=== PATIENT | male | born 1945 | race Caucasian/White ===

== ENCOUNTER 2017-04-21 14:01 | Observation (INO) | payer OTHER ==
--- NOTE | 2017-04-21 14:41 | EDPHY ---
H & P Time Seen by Provider: 04/21/17 14:22 HPI/ROS: CHIEF COMPLAINT: Could not read HISTORY OF PRESENT ILLNESS: 71-year-old man has a history of cardiac stenting for 90% circumflex lesion. He also has hyperlipidemia and hypertension. Today he was at home reading about a upcoming trip to [facility] and suddenly could not read or understand any of the brochure. This happened at 1:15 p.m. and lasted about 15 min. He told his that he was not feeling bad and was trying to tell her that he thought he might be having a stroke but he could not remember or say the word "stroke. " Currently is asymptomatic. REVIEW OF SYSTEMS: Eye: no change in vision ENT: no sore throat Cardiac: no chest pain or syncope Pulmonary: no cough or SOB Abdomen: no vomiting, diarrhea, abdominal pain Musculoskeletal: no back pain Skin: no rash Neuro: no headache Constitutional: no fever : no urinary symptoms A comprehensive 10 point review of systems is otherwise negative aside from elements mentioned in the history of present illness. PAST MEDICAL HISTORY: As in HPI includes coronary disease Social history: General Appearance: Alert and conversant, cooperative. Eyes: No scleral icterus. Extraocular motion intact and pupils round reactive. ENT, Mouth: Normal mucous membranes. Respiratory: Normal respiratory effort, breath sounds equal, lungs are clear to auscultation. Cardiovascular: Regular rate and rhythm. Gastrointestinal: Abdomen is soft and non tender. Neurological: Alert, face symmetric, normal motor and sensory in extremities. Acxldp-lv-olph intact bilaterally and no pronator drift. Speech fluent. Skin: Warm and dry, no rashes. Musculoskeletal: No peripheral edema. Psychiatric: Not agitated. Emergency Department course/MDM: Patient presents with likely TIA. He is a patient of Ariel Khoury at [facility]. Plan for head CT, carotid evaluation, echocardiogram, EKG, 24 hr monitoring. The patient says he can read normally now. I handed him back his [employer] brochure which he brought to the ED, and he can read it fluently now but just tells me that he thinks it is poorly written. [id number]: discussed with [facility] about hospitalization, [facility] requests that I admit [facility] not transfer per [facility]/ECM office. Admission hospitalist service for TIA workup. Smoking Status: Former smoker Constitutional: Initial Vital Signs Temperature (C) 37.0 C 04/21/17 14:05 Heart Rate 81 04/21/17 14:05 Respiratory Rate 16 04/21/17 14:05 Blood Pressure 146/101 H 04/21/17 14:05 O2 Sat (%) 96 04/21/17 14:05 O2 Delivery Mode Room Air Allergies/Adverse Reactions: No Known Allergies Allergy (Unverified 04/21/17 14:04) Home Medications: Medication Instructions Recorded Aspirin [Aspirin 81mg (*)] 81 mg PO DAILY 04/21/17 Calcium Carbonate [Oyster Shell 500 mg PO DAILY 04/21/17 Calcium 500 mg (*)] Cholecalciferol Vit D3 [Vitamin D3 1,000 units PO DAILY 04/21/17 (*)] Herbals/Supplements -Info Only 1 ea PO DAILY 04/21/17 Metoprolol Succinate Xr [Toprol Xl 100 mg PO DAILY 04/21/17 100 mg (*)] Multivitamins [Multivitamin (*)] 1 each PO DAILY 04/21/17 Simvastatin [Zocor] 40 mg PO DAILY 04/21/17 Medical Decision Making - Diagnostics EKG Interpretation: 12-lead EKG interpreted by me; official reading is in trace master. My interpretation is sinus rhythm with PVC rate 74. Imaging Results: Imaging Impressions Chest X-Ray 04/21/17 14:41 Impression: Hyperexpanded lungs suggesting COPD with no definite acute findings. Head CT 04/21/17 14:41 Impression: 1. No acute intracranial findings. If symptoms persist and clinical suspicion warrants, consider MRI. 2. Diffuse cerebral atrophy with periventricular and subcortical low attenuation consistent with chronic microvascular ischemic gliosis. 3. Mucous retention cyst/polyps in the maxillary sinuses. Findings discussed with Dr. Jseus Shaikh on 04/21/2017 at 15:17. Imaging: I viewed and interpreted images myself Differential Diagnosis: The differential considered including but not limited to TIA, intracranial mass , partial seizure ischemic stroke, primary ophthalmological problem. Consult/Admit Bed Type: [place] [id number] - Data Points Laboratory Results: Laboratory Results 04/21/17 14:58 04/21/17 14:58 04/21/17 04/21/17 04/21/17 14:58 14:58 14:57 WBC 5.90 10^3/uL 10^3/uL (3.80-9.50) RBC 4.92 10^6/uL 10^6/uL (4.40-6.38) Hgb 16.0 g/dL g/dL (13.7-17.5) Hct 46.5 % % (40.0-51.0) MCV 94.5 fL fL (81.5-99.8) MCH 32.5 pg pg (27.9-34.1) MCHC 34.4 g/dL g/dL (32.4-36.7) RDW 12.1 % % (11.5-15.2) Plt Count 155 10^3/uL 10^3/uL (150-400) MPV 11.8 fL H fL (8.7-11.7) Neut % (Auto) 56.4 % % (39.3-74.2) Lymph % (Auto) 26.9 % % (15.0-45.0) Pope % (Auto) 9.3 % % (4.5-13.0) Eos % (Auto) 6.6 % % (0.6-7.6) Baso % (Auto) 0.5 % % (0.3-1.7) Nucleat RBC Rel Count 0.0 % % (0.0-0.2) Absolute Neuts (auto) 3.32 10^3/uL 10^3/uL (1.70-6.50) Absolute Lymphs (auto) 1.59 10^3/uL 10^3/uL (1.00-3.00) Absolute Monos (auto) 0.55 10^3/uL 10^3/uL (0.30-0.80) Absolute Eos (auto) 0.39 10^3/uL 10^3/uL (0.03-0.40) Absolute Basos (auto) 0.03 10^3/uL 10^3/uL (0.02-0.10) Absolute Nucleated RBC 0.00 10^3/uL 10^3/uL (0-0.01) Immature Gran % 0.3 % % (0.0-1.1) Immature Gran # 0.02 10^3/uL 10^3/uL (0.00-0.10) Sodium 142 mEq/L mEq/L (135-145) Potassium 4.2 mEq/L mEq/L (3.5-5.2) Chloride 105 mEq/L mEq/L (97-110) Carbon Dioxide 22 mEq/l mEq/l (22-31) Anion Gap 15 mEq/L mEq/L (8-16) BUN 17 mg/dL mg/dL (7-23) Creatinine 0.8 mg/dL mg/dL (0.7-1.3) Estimated GFR > 60 Glucose 97 mg/dL mg/dL (70-100) Calcium 10.0 mg/dL mg/dL (8.5-10.4) Troponin I < 0.012 ng/mL ng/mL < 0.012 ng/mL ng/mL (0.000-0.034) (0.000-0.034) Medications Given: Aspirin (Aspirin) 81 mg PO DAILY TE Stop: 10/18/17 15:14 Last Admin: 04/21/17 16:01 Dose: Not Given Discontinued Medications Sodium Chloride (Ns) 1,000 mls @ 3,000 mls/hr IV ONCE ONE Stop: 04/21/17 15:23 Last Admin: 04/21/17 16:01 Dose: 1,000 mls Departure - Departure Disposition: [facility] Inpatient Acute Clinical Impression: Transient cerebral ischemia Qualifiers: Transient cerebral ischemia type: unspecified Qualified Code(s): G45.9 - Transient cerebral ischemic attack, unspecified Condition: Good
--- NOTE | 2017-04-21 14:58 | CPEKG ---
Heart Rate: 74 RR Interval: 811 P-R Interval: 172 QRSD Interval: 94 QT Interval: 428 QTC Interval: 475 P [place]: 74 QRS [place]: 48 T Wave [place]: 27 EKG Severity - OTHERWISE NORMAL ECG - EKG Impression: SINUS RHYTHM EKG Impression: VENTRICULAR PREMATURE COMPLEX Electronically Signed By: Jesus Shaikh 21-Apr-2017 15:01:12
[2017-04-21] MEDS ORDERED: ONDANSETRON 4 MG/2 ML VIAL IVP PRN (15:04)
[2017-04-21] MEDS ORDERED: NS 1,000 ML IV ONE (15:04)
[2017-04-21] MEDS ORDERED: ACETAMINOPHEN 325 MG TAB PO PRN (15:04)
[2017-04-21] MEDS ORDERED: ONDANSETRON DISINTEGRATING 4 MG TAB PO PRN (15:04)
[2017-04-21 15:50] LABS: PLATELET COUNT 155 10^3/uL (150-400)
[2017-04-21] MEDS: ASPIRIN 81 MG CHEWABLE TAB PO SCH (16:01)
[2017-04-21] MEDS ORDERED: IOPAMIDOL (ISOVUE 370) 100 ML BTL IV ONE (16:11)
--- NOTE | 2017-04-21 17:44 | GHP ---
[f rep st] HISTORY AND PHYSICAL DATE OF ADMISSION: 04/21/2017 CHIEF COMPLAINT: Word-finding difficulties. HISTORY OF PRESENT ILLNESS: A 71-year-old male with a history of SD and stent placed to his circumfl ex coronary artery approximately 18 years ago, who reports no recurring symptoms of chest discomfort or arm pain since his intervention. He is a healthy, highly functioning male with no limitations sec ondary to dyspnea, chest pain, palpitations, or weakness. The patient was working on a house that he was building today and reading some high-level [employer] and reading when all of a sudden h e was unable to read or understand the words that were in front of him. He could make out the letter s very clearly but no longer was able to interpret the meaning of the letter or the words that were i n front of him. Symptoms began at approximately 1:15 in the afternoon and lasted for 15 minutes, the n spontaneously resolved. Patient denies any associated weakness, tingling, numbness. Patient was a ble to ambulate around his home without any gait instability or difficulty. After resolution of the word-finding difficulty, patient has not had recurrence of his symptoms. In the emergency department he denies chest pain, denies shortness of breath, denies dizziness, vision changes, dysphagia, chest pain, palpitations, abdominal pain, nausea, vomiting, diarrhea, dysuria, hematuria, lower extremity edema. PAST MEDICAL HISTORY: 1. Coronary artery disease status post stenting to the circumflex 18 years ago. 2. Hypertension. SOCIAL HISTORY: Patient drinks wine in the evenings. Is a previous smoker but has not smoked since the . Denies illicit drugs and very rarely uses marijuana. FAMILY HISTORY: Positive for coronary artery disease in his older brother. ADVANCED DIRECTIVES: Patient is full cor, full tube. His would be his medical decision maker. REVIEW OF SYSTEMS: A 10-point review of systems is negative with the exception of that reported in t he HPI. PHYSICAL EXAMINATION: VITAL SIGNS: Blood pressure 146/101, heart rate 81, respiratory rate 16, 96% on room air, 37.0. GENERAL: This is a very healthy-appearing middle-aged male in no acute distress. HEENT: Exam is notable for moist mucous membranes. Eye exam is negative for any icterus. CARDIAC : Patient is regular rate and rhythm. No murmur is appreciated. PULMONARY: Clear to auscultation bilaterally. GASTROINTESTINAL: Positive bowel sounds. ABDOMEN: Soft and nontender in all 4 quadra nts. MUSCULOSKELETAL: Negative for any lower extremity edema. SKIN: Negative for any rashes. SACHIN ROLOGIC: The patient is alert and oriented x3. His speech is fluid without difficulty finding or ma jessica words. The patient has 5/5 strength bilaterally of the upper and lower extremities. Cranial ne rves 2-12 are grossly intact. PSYCHIATRIC: He is pleasant and cooperative on interview and examinat ion. DATA: Noncontrast CT of the head, which I personally reviewed and interpreted shows no acute intracr anial findings. LABORATORY: White count 5.9, hematocrit 46.5. Creatinine 0.8. Troponin less than 0.012. EKG which I personally reviewed and interpreted shows sinus rhythm, normal access, normal intervals with no ac kena ST-T changes. ASSESSMENT AND PLAN: This is a 71-year-old male presenting with word-finding difficulty. 1. Acute transient ischemic attack. The patient's symptoms lasted for 15 minutes, resolved spontane ously. Initial imaging of the brain is benign. The patient received 81 mg of aspirin. Will be admi tted on telemetry. We will obtain a CTA of the head and neck, a transthoracic echocardiogram, and an MRI brain. We will continue his home dosing of aspirin and statin, check a hemoglobin A1c and lipid s in the morning. Neurology will be consulted and can assist in the completion of his diagnostic sintia luation in the morning item. 2. Coronary artery disease. The patient does not have any chest pain symptoms. Vital signs are sta ble. EKG is unconcerning. Will not cycle an additional troponin at this time item. 3. Hypertension. We will continue his home medications and follow his blood pressures overnight. 4. Prophylaxis with Lovenox. 5. Diet: Cardiac. DISPOSITION: I expect in less than 2 midnights if the patient's diagnostic workup is benign, he shou ld be a candidate for disposition in the morning. I have discussed the case with the emergency room physician. Patient will be triaged to the medical-surgical floor for care. /[id number]/MODL
[2017-04-22 04:41] VITALS: O2SAT 95
[2017-04-22] MEDS: ASPIRIN 81 MG CHEWABLE TAB PO SCH (08:42)
[2017-04-22] MEDS ORDERED: METOPROLOL SUCCINATE XR 50 MG TAB PO SCH (09:00)
[2017-04-22] MEDS ORDERED: CHOLECALCIFEROL VIT D3 1,000 UNITS TAB PO SCH (09:00)
[2017-04-22] MEDS ORDERED: ATORVASTATIN CALCIUM 20 MG TAB PO SCH (09:00)
[2017-04-22] MEDS ORDERED: CALCIUM CARBONATE 500 MG TAB PO SCH (09:00)
[2017-04-22] MEDS ORDERED: MULTIVITAMINS 1 EACH TAB PO SCH (09:00)
[2017-04-22] MEDS ORDERED: ENOXAPARIN 40 MG/0.4 ML SYR SC SCH (09:00)
[2017-04-22] MEDS ORDERED: Herbals/Supplements -Info Only PO SCH (09:00)
--- NOTE | 2017-04-22 09:08 | ASMTCASEMG ---
Living Arrangements What is your living Answers: With Spouse arrangement? Who do you live with? Type Of Residence What kind of residence do Answers: House you live in? Discharge Plan Comments Coordination Status Comments Notes: Pt is a 71 y/o man admitted for acute transient ischemic attack. Pts symptoms resolved after 15 mins. Neurology and speech has been consulted. Pt will most likely d/c independent when medically stable. CM available for changes. Plan: Independent Date Signed: 04/22/2017 09:07 AM Electronically Signed By:ISABELLA Chen
--- NOTE | 2017-04-22 09:32 | NEUROPROG ---
Assessment: [id number] - Neurology Consult: - CC: Dr. Davidson consulted neurology for possible TIA. Results placed in EMR for her review. - HPI: The patient reported on 04/21/17 he had a brief episode of loss of ability to read for 15 minutes. He denied any other neurologic problems to include no weakness, sensory changes, or tingling. He presented to [facility] ER and was admitted for stroke evaluation. Head CT and brain MRI were unremarkable. CTA head/neck showed a 70% left vert stenosis and a 50-60% right ICA stenosis. Pt was on aspirin and statin at admission. I initially saw the patient on . His neurologic exam was normal. I was concerned his right carotid stenosis was symptomatic so I asked General surgery to take a look at him. TTE and 24 hour telemetry was not yet completed as well. He denied complaints. - PMHx: [place] w/stent 1999, HTN - Meds: simvastatin 40 mg qd, aspirin 81 mg qd, metoprolol - SHx: prior tobacco user FHx: coronary artery disease - ROS: Pt denied acute fever, total vision loss, active severe chest pain, respiratory failure, total body severe rash, total bowel/bladder incontinence, psychosis, active seizures, or active bleeding - O: VS reviewed General: Alert Eyes: Fundoscopic exam not able to visualize optic disks CV: Heart RRR, no murmur, no carotid bruit Lungs: Clear to auscultation bilaterally, no rhonchi or rales Neuro: - Mental: . Oriented x person/place/date . concentration appears normal . speech fluency/comprehension normal . memory appears normal . fund of knowledge appear intact - Cranial Nerves: . II: PERRL, VFFTC . III/IV/: EOMI, no nystagmus, normal smooth pursuits, no Ptosis . V: facial sensation intact to LT . VII: face symmetric to eye closure and smile . VIII: hearing intact to conversation . IX/X: uvula raises symmetrically . XI: SCM 5/5 B/L strength . XII: tongue protrudes midline w/nl strength - Motor: . Tone: normal tone in all 4 extremity . Strength: no pronator drift, strength 5/5 throughout (B/L delt, bic, tri, hand golf cart attendant, hf/he, df/pf) - Reflexes: B/L bic/BR/patella 2/4 - Sensory: all 4 extremity intact to light touch - Coord: wakqda-cf-aqcr wnl, BILL wnl, ncby-wb-mseq wnl - Gait: deferred - NIH SS: 0 - Labs: 04/21/17- CBC wnl, Chem wnl LDL 56L, H1AC pending - Rads: 04/21/17- Head CT: no acute changes 04/21/17- CTA head/neck: 70% left vert stenosis, 50-60% right ICA stenosis 04/21/17- Brain MRI w/o con: no acute findings, atrophy/CMVD (I personally visualized the images on 04/22/17) - Assessment: 1. TIA in setting of right carotid stenosis: Pt with 15 minutes of problems reading on 04/21/17 in the setting of 50-60% right ICA stenosis is concerning for a symptomatic right carotid stenosis. Normal neurologic exam 04/22/17. Brain MRI 04/21/17 unremarkable. CTA head/neck showed 70% left vert stenosis and 50-60% right ICA stenosis. 04/21/17 LDL 56L. Given TIA and left vert stenosis I would recommend lifetime statin/antiplatelet therapy (as patient is currently undergoing). - 2. History of coronary artery disease - Plan: - Recommend obtaining surgery consult by Dr. Shore for suspected symptomatic right carotid stenosis (I called Dr. Shore and placed this consult) - TTE - 24 hour telemetry - Work closely with primary care provider to ensure blood pressure < 140/90, H1AC < 7.0, and LDL < 70 - Stop aspirin 81 mg qd and begin plavix 75 mg qd and continue lifelong for stroke prevention (TIA occurred on aspirin, aspirin failure) - Continue statin - F/U in neurology clinic or with [place] [facility] 1-4 weeks after hospital discharge Objective: Vital Signs Temp Pulse Resp BP Pulse Ox 36.7 C 62 22 H 115/65 95 04/22/17 08:47 04/22/17 08:47 04/22/17 08:47 04/22/17 08:47 04/22/17 08:47 04/21/17 04/22/17 04/23/17 05:59 05:59 05:59 Intake Total 1000 Balance 1000 Allergies/Adverse Reactions: No Known Allergies Allergy (Unverified 04/21/17 14:04)
--- NOTE | 2017-04-22 14:20 | ECHO ---
[email or web address] [address] [address] Main: [phone] Fax: Transthoracic Echocardiogram Name: BEATA DICKEY MR#: [id number] Study Date: 04/22/2017 Study Time: 08:10 AM Date of : 1945 Age: 71 year(s) Height: 172.7 cm (68 in.) Weight: 81.65 kg (180 lb.) BSA: 1.95 m2 Gender: Male Examination: Echo Indication: TIA, Hx stent years ago Image Quality: Contrast: Requested by: Anabel Davidson BP: 122 mmHg/74 mmHg Heart Rate: Rhythm: Indication: TIA, Hx stent years ago Procedure Staff Metallography Teacher: Ellen Vargas [facility] Reading Physician: Kali Huffman Requesting Provider: Conclusions: Mildly dilated left ventricle. No LV hypertrophy. Normal global systolic LV function. EF is 59 %. Mid and basal inferior wall hypokinesis . The left atrium is normal in size. An agitated saline study was performed and was negative for intracardiac shunting. The right atrium is normal in size. Trivial tricuspid valve regurgitation. No pericardial effusion. Measurements: Chambers Valvular Assessment AV/MV Valvular Assessment TV/PV Normal Normal Normal Name Value Range Name Value Range Name Value Range Ao Rosy (MM): 3.7 cm (2.2 cm-3.7 AV meanP mmHg ( - ) cm) MV E Vmax: 0.82 m/s ( - ) IVSd (2D): 0.7 cm (0.6 cm-1.1 MV A Vmax: 0.80 m/s ( - ) cm) MV E/A: 1.02 ( - ) LVDd (2D): 6.1 cm (4.2 cm-5.9 cm) LVDs (2D): 4.5 cm (2.1 cm-4 cm) LVPWd (2D): 0.8 cm (0.6 cm-1 cm) LVEF (MOD4): 59 % (>=55 %) Continued Measurements: Chambers Valvular Assessment AV/MV Patient: BEATA DICKEY Study Date: 04/22/2017 Page 1 of 2 08:10 AM Name Value Name Value LADs: 4.1 cm MV E/E' Septal: 15.30 LADs Lon.5 cm MV E/E' Lateral: 8.80 LA Area: 21.0 cm2 Findings: Left Ventricle: Mildly dilated left ventricle. No LV hypertrophy. Normal global systolic LV function. EF is 59 %. Mid and basal inferior wall hypokinesis . Right Ventricle: Normal size right ventricle. Left Atrium: The left atrium is normal in size. An agitated saline study was performed and was negative for intracardiac shunting. Right Atrium: The right atrium is normal in size. Mitral Valve: The mitral valve is normal in appearance and function. Mild mitral valve regurgitation is present. Aortic Valve: The aortic valve is normal in appearance and function. Tricuspid Valve: The tricuspid valve is normal in appearance and function. Trivial tricuspid valve regurgitation. Pulmonic Valve: The pulmonic valve is normal in appearance and function. Aorta: The aorta is normal. Pericardium: No pericardial effusion. (No Signature Object) Patient: BEATA DICKEY Study Date: 04/22/2017 Page 2 of 2 08:10 AM [id number]
--- NOTE | 2017-04-22 14:22 | GCON ---
[f rep st] CONSULTATION DATE OF CONSULTATION: 04/22/2017 HISTORY OF PRESENT ILLNESS: Patient is a 71-year-old male who is [facility] with an atypical T[facility] could not effectively read for several minutes. He had no other motor problems or other symp toms, and no visual disturbances, although he has a history of a visual problem 3-4 years ago. He wa s evaluated for TIA. His brain MRI is negative for stroke, but he does have a 60% calcified stenosis of his right internal carotid artery, as well as a 70% stenosis of the origin of his left vertebral. PAST MEDICAL HISTORY: Includes coronary stent with coronary artery disease, and hypertension. FAMILY HISTORY: Noncontributory. REVIEW OF SYSTEMS: Negative on a 10-point Review of Systems. Specifically, he does not smoke or hav e any current cardiopulmonary symptoms. PRESENT MEDICATIONS: Aspirin and Zocor, high blood pressure medicine, include MultiVites and metopro lol, vitamin D. ALLERGIES: None. PHYSICAL EXAMINATION: GENERAL: Reveals an alert 71-year-old male, in no acute distress. VITAL SIGN S: Afebrile. HEENT/NECK: Reveals no definite bruits. No thyromegaly. No oral lesions. No adenop athy, and no icterus. CHEST: Clear. CARDIAC: Reveals a regular rhythm. ABDOMEN: Soft. EXTREMIT IES: Benign with full pulses. NEURO: Physiologic and symmetric with motor and sensory skills. His cranial nerves were intact. IMPRESSION: Atypical transient ischemic attack. RECOMMENDATIONS: Would be to consider right carotid endarterectomy as a logical cause of his TIA. Alicia suárez should be safe enough to consult with his primary doctor at [place], if he does not want to proceed with surgery at this time. I would continue his aspirin therapy, and consider changing to Lipitor as a statin drug. Again, it is a difficult call because of his somewhat atypical symptomatology, but I think it is suggestive of TIA that would warrant a right carotid endarterectomy. Copy requested to: Dilip Enriquez /[id number]/MODL
[2017-04-22 16:02] VITALS: BP 117/75; PULSE 55; RESP 22; TEMP 98
[2017-04-22] MEDS ORDERED: CLOPIDOGREL BISULFATE 75 MG TAB PO SCH (16:15)
--- NOTE | 2017-04-22 18:53 | PDDCSUM ---
Discharge Summary Discharge Summary: DISCHARGE SUMMARY FOLLOW-UP ITEMS: Outpatient stress test Vascular surgery evaluation DATE OF ADMISSION: 04/21/2017 DATE OF DISCHARGE: 04/22/2017 DISCHARGE DIAGNOSES: 1. Acute TIA 2. 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 CONSULTATIONS: Neurology, vascular surgery PROCEDURES / IMAGING: CT angiogram demonstrating right-sided internal carotid artery 50-60% stenosis, left side vertebral artery 70% stenosis, no intracranial stenosis, echocardiogram demonstrating focal wall motion abnormalities, normal ejection fraction, no severe valvulopathy MRI demonstrating no CVA CHIEF COMPLAINT: Acute visual disturbance SUBJECTIVE: Patient is feeling well at time discharge, he has not had recurrence symptoms PHYSICAL EXAM ON DISCHARGE: Systolic blood pressure is 120-140, heart rate 60, afebrile overnight, satting on room air, patient has facial symmetry, alert awake oriented x3, motor strength 5/5 bilateral upper extremities LABS ON DISCHARGE: Hemoglobin A1c 5.4%, LDL 56 HOSPITAL COURSE BY PROBLEM: The patient presented with acute TIA characterized by acute visual disturbance, lasting approximately 15 min, resolving spontaneously, most likely corresponding to stenosis in his right internal carotid artery, noted on CT angiogram. MRI demonstrated no overt CVA. Echocardiogram demonstrated no ASD. The patient was seen consultation by Neurology who recommended upgrading his aspirin to Plavix, upgrading his simvastatin to atorvastatin. He was seen by vascular surgery who recommended non emergent vascular surgery consideration, and the patient would like to consider this through [facility]. Echocardiogram did demonstrate some focal hypokinesis, the patient reports cardiac stenting approximately 17 years ago, unknown baseline echocardiogram. I believe the patient most likely warrants a nuclear medicine stress test prior to engaging in vascular surgery. I communicated this to the patient his , and they will follow up with her primary care provider to address these issues. I counseled the patient and his regarding the need for immediate medical attention if he experiences any recurrence of symptoms, as well as the bleeding risks on Plavix. DISCHARGE MEDICATIONS: Please see official discharge medication reconciliation sheet in chart , discontinue aspirin, initiate Plavix 75 mg daily, discontinue simvastatin, initiate atorvastatin 20 mg daily DISCHARGE INSTRUCTIONS: Please follow up with primary care provider as scheduled next Thursday.
--- NOTE | 2017-04-23 10:39 | ASDISCHSUM ---
Discharge Information Plan Status:Home with No Needs Medically Cleared to Leave: Discharge Date:04/22/2017 05:20 PM CM D/C Disposition:Home, Routine, Self-Care ADT D/C Disposition:Home, Routine, Self-Care Projected Discharge Date:04/22/2017 05:20 PM Transportation at D/C: Discharge Delay Reason: Follow-Up Date:04/22/2017 05:20 PM Discharge Slot: Final Diagnosis: Placement Information Patient Contact Information Contact Name:RUDY Relationship: Address:[address] City:[place] Alternate Phone: [facility]/Zip Code:[place] [address] Email: Financial Information Financial Class:Medicare Advantage Plans Primary Plan Desc:ES MEDICARE ADVANTAGE OUTPAT Primary Plan Number:[id number] Secondary Plan Desc: Secondary Plan Number: Assessment Information [facility] Initial CM Assessment Living Arrangements What is your living Answers: With Spouse arrangement? Who do you live with? Type Of Residence What kind of residence do Answers: House you live in? Discharge Plan Comments Coordination Status Comments Notes: Pt is a 71 y/o man admitted for acute transient ischemic attack. Pts symptoms resolved after 15 mins. Neurology and speech has been consulted. Pt will most likely d/c independent when medically stable. CM available for changes. Plan: Independent Date Signed: 04/22/2017 09:07 AM Electronically Signed By:ISABELLA Chen Intervention Information Intervention Type:*PUMA-Signed Date of Service:04/22/2017 10:02 AM Patient Type:Observation Staff Member:Shima Owens Hours: Discipline: Severity: Comment:
== END 2017-04-22 17:20 | disposition home or self-care (01) ==
LOC: F3N 18:33
PROVIDERS: ADMIT Hospitalist; ATTEND Hospitalist
DX: G45.9 Transient cerebral ischemic attack, unspecified (principal); I65.23 Occlusion and stenosis of bilateral carotid arteries; E78.5 Hyperlipidemia, unspecified; I10 Essential (primary) hypertension
CPT/HCPCS: 70450; 70496; 70498; 70551; 71046; 92610; 93005; 93306; 99285; G0378; G8996; G8997; G8998; Q9967; J1650

== ENCOUNTER 2017-12-03 17:41 | Emergency (ER) | payer OTHER ==
[2017-12-03 17:51] VITALS: BP 102/77
--- NOTE | 2017-12-03 18:39 | EDPHY ---
H & P Stated Complaint: ? OPEN FX R HAND ON PLAVIX INJ WITH WATCH DIAL MAKER Time Seen by Provider: 12/03/17 18:36 HPI/ROS: HPI: This is a 72-year-old male who presents with Chief Complaint: Right hand injury with terrazzo grinder Location: Right hand Quality: Injury with terrazzo grinder Duration: Prior to arrival Signs and Symptoms: + bleeding, no radiation, no numbness, no weakness, no tingling, no decreased range of motion, + swelling, + pain, no fever Timing: Acute Severity: [id number] Context: Patient is right-hand dominant, presents accompanied by with complaints of accidentally having the terrazzo grinder kick back on the top of his right hand causing 3 puncture site and swelling. Patient reports he is on Plavix for history of a TIA and does have easy bruising. He reports that it is swollen in the areas of the puncture sites and he believes this is due to blood collection. Reports tetanus is current. Denies paresthesias, radiation, weakness. Modifying Factors: Applied direct pressure Comment: ROS: A comprehensive 10 system review of systems is otherwise negative aside from elements mentioned in the history of present illness. MEDICAL/SURGICAL/SOCIAL HISTORY: Medical history: htn, hyperlipidemia, cardiac stent 2012, TIA Surgical history: Denies Social history: . Nonsmoker. CONSTITUTIONAL: Polite and cooperative elderly white male, awake and alert, no obvious distress HEENT: Atraumatic and normocephalic. NECK: supple EXTREMITIES: 2/2 pulses, strength 5/5, right hand dorsal aspect the base of the middle finger, base of the 5th digit and base of the 1st digit shows approximately 1/16 inch superficial laceration with mild oozing of blood and hematoma underneath the skin surface. DIP/PIP/MCP flexion/extension intact with good light touch sensation. no deformities, no clubbing, no cyanosis or edema. NEUROLOGICAL: no focal neuro deficits. GCS 15. Light touch sensation intact. SKIN: Warm and dry, no erythema. no rash. Good capillary refill. Source: Patient Exam Limitations: No limitations - Personal History Current Tetanus Diphtheria and Acellular Pertussis (TDAP): Yes - Medical/Surgical History Hx Asthma: No Hx Chronic Respiratory Disease: No Hx Diabetes: No Hx Cardiac Disease: No Hx Renal Disease: No Hx Cirrhosis: No Hx Alcoholism: No Hx HIV/AIDS: No Hx Splenectomy or Spleen Trauma: No Other PMH: htn. hyperlipidemia. cardiac stent 2012 - Social History Smoking Status: Former smoker Constitutional: Initial Vital Signs Temperature (C) 36.6 C 12/03/17 17:47 Heart Rate 66 12/03/17 17:47 Respiratory Rate 18 12/03/17 17:47 Blood Pressure 102/77 12/03/17 17:47 O2 Sat (%) 94 12/03/17 17:47 O2 Delivery Mode Room Air Allergies/Adverse Reactions: No Known Allergies Allergy (Verified 12/03/17 17:46) Home Medications: Medication Instructions Recorded Calcium Carbonate [Oyster Shell 500 mg PO DAILY 04/21/17 Calcium 500 mg (*)] Cholecalciferol Vit D3 [Vitamin D3 1,000 units PO DAILY 04/21/17 (*)] Herbals/Supplements -Info Only 1 ea PO DAILY 04/21/17 Metoprolol Succinate Xr [Toprol Xl 100 mg PO DAILY 04/21/17 100 mg (*)] Multivitamins [Multivitamin (*)] 1 each PO DAILY 04/21/17 Atorvastatin Calcium [Lipitor 20 20 mg PO DAILY #30 tab 04/22/17 mg (*)] Clopidogrel Bisulfate [Plavix (*)] 75 mg PO DAILY #30 tab 04/22/17 Cephalexin [Keflex (*)] 500 mg PO QID #28 cap 12/03/17 Medical Decision Making - Diagnostics Imaging Results: Imaging Impressions Hand X-Ray 12/03/17 18:34 Impression: Negative. No acute fracture or retained foreign body. ED Course/Re-evaluation: Tetanus is current. Local anesthesia provided and surgery foam and pressure dressing applied upon arrival. Right hand x-ray ordered and my read via PACs shows no signs of fracture, dislocation, foreign body. Superficial lacerations are less than 1 mm and do not require suturing. Bacitracin and clean sterile dressing applied. Started on Keflex 500 mg 4 times a day with wound check in 2-3 days. No signs of neurovascular compromise/tenting of skin/compartment syndrome/ extremities and joints examined above and below area of concern and are neurovascularly intact. This patient was seen under the supervision of my secondary supervising physician. I evaluated care for this patient independently. Discussed this patient with Dr. Sahu. Differential Diagnosis: Differential diagnosis includes but is not limited to med at carpal fracture, tendon injury, nerve injury, hematoma, contusion. Departure - Departure Disposition: Home, Routine, Self-Care Clinical Impression: Contact with powered terrazzo grinder as cause of accidental injury Laceration of right hand without complication, excluding fingers Qualifiers: Encounter type: initial encounter Qualified Code(s): S61.411A - Laceration without foreign body of right hand, initial encounter Traumatic hematoma of hand Qualifiers: Encounter type: initial encounter Laterality: right Qualified Code(s): S60.221A - Contusion of right hand, initial encounter Condition: Good Instructions: Care For Your Stitches (ED), Laceration (ED), Hematoma (ED) Additional Instructions: 1) Keep the dressing dry and in place for 48 hours. 2) After 48 hours, you may remove the dressing; wash the site daily with mild soap and water; then pat dry; apply topical antibiotic ointment and dressing until fully healed. 3) Take Tylenol 650 mg every 4 hours and/or Ibuprofen 600 mg every 8 hours with food as needed for pain. 4) Apply warm compresses for 30 minutes at a time; 2-3 times per day for the next 1-2 days. 5) The x-rays obtained in the emergency department today demonstrate no evidence of an obvious fracture. Sometimes fractures are not obvious on the initial set of x-rays performed in the ED. For this reason, you should have repeat x-rays performed in 7-10 days if you are having any pain exclude the possibility of an occult fracture. 6) Wound Care Follow-Up: Wound evaluation and dressing change in [ 3 ] days. There is a charge for this evaluation in the Emergency Department. Referrals: SHRAVAN HAN [Other] - As per Instructions Prescriptions: Cephalexin [Keflex (*)] 500 mg PO QID #28 cap
[2017-12-03] MEDS ORDERED: CEPHALEXIN 500MG PREPACK#4 BTL TAKEHOME ONE (19:08)
== END 2017-12-03 19:38 | disposition home or self-care (01) ==
DX: S61.411A Laceration without foreign body of right hand, initial encounter (principal); S60.221A Contusion of right hand, initial encounter; W31.89XA Contact with other specified machinery, initial encounter; Z87.891 Personal history of nicotine dependence